=== PATIENT | female | born 1955 | race Caucasian/White ===

== ENCOUNTER 2020-07-23 09:00 | Outpatient (RCR) | payer OTHER, SELFPAY ==
--- NOTE | 2020-04-28 17:00 | PTOPEVAL ---
INITIAL PHYSICAL THERAPY EVALUATION and PLAN OF CARE Thank you for referring Della Sesay to [facility].? Della is scheduled to be seen for physical therapy? 2x/week for 6 weeks. Please review, sign, date and return this plan of care MELISSA. I agree with and certify that the following plan of care is medically necessary. Referring Physician Date Admitting Provider: Attending Provider: Michelle Esparza, PA Referring Provider: *PT Outpatient Evaluation Start: 04/28/20 08:35 Freq: Status: Active Protocol: Document 04/28/20 08:36 DAVONTE (Rec: 04/28/20 09:59 DAVONTE [email or web address]) Therapy Assessment Status Assessment Status Assessment Status Evaluation Outpatient Past Medical History Past Medical History Source of Past Medical History Patient Musculoskeletal History Hx Other Musculoskeletal Disorders Yes: chronic neck pain Other History Hx Other Surgeries Yes: dental work - implants L side upper & lower Evaluation Information Problem Diagnosis dizziness Onset worsening several months ago Subjective Information long history of neck pain - Query Text:As Reported By Patient/ when would massage deep on L Family upper, lateral neck near ear - would become dizzy. Receives regular chiropractic treatments since mid s - doesn't clear neck pain. Has been receiving massage - 1x/wk - even though person is gentle in this area - noticing dizziness is getting worse. Mom has had life long issues with dizziness - including nausea and vomitting and needing to crawl to bathroom. Dental implants upper and lower quadrant - did not notice any dizziness at that time. Most activities - limited due to neck pain - household, recreational, reading, etc. 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
--- NOTE | 2020-06-11 12:26 | PTOPEVAL ---
PHYSICAL THERAPY RE-EVALUATION and UPDATED PLAN OF CARE Thank you for referring Della Sesay to [facility].? Della has made progress towards goals set but is still in need of skilled PT. She is scheduled to be seen for physical therapy? 2x/week for 6 weeks. Please review, sign, date and return this plan of care MELISSA. I agree with and certify that the following plan of care is medically necessary. Referring Physician Date Admitting Provider: Attending Provider: Michelle Esparza, PA Referring Provider: *PT Outpatient Evaluation Start: 04/28/20 08:35 Freq: Status: Active Protocol: Document 06/11/20 11:10 DAVONTE (Rec: 06/11/20 12:25 DAVONTE [email or web address]) Therapy Assessment Status Assessment Status Assessment Status Re-evaluation Pain Assessment Timing of Pain Assessment Timing of Pain Assessment Pre-Treatment Pain Scale Pain Scale Used Numeric (1 - 10) Self Report Pain Assessment Posterior Spine, Cervical Reported Pain Level 3 Lowest Pain Intensity 1 Greatest Pain Intensity 5 Pain Score Pain Score 3: Self Report Interventions Used Interventions Used By Clinicians Exercise,Manual Therapy Techniques Cervical and Lumbar ROM Cervical ROM Cervical Flexion (0-60) 25 Query Text:Active in Degrees Cervical Extension (0-70) 45 Query Text:Active in Degrees Cervical Lateral Flexion Right (0-50) 25 Query Text:Active in Degrees Cervical Lateral Flexion Left (0-50) 25 Query Text:Active in Degrees Cervical Rotation Right (0-90) 40 Query Text:Active in Degrees Cervical Rotation Left (0-90) 40 Query Text:Active in Degrees Cervical and Lumbar Muscle Testing Cervical Muscle Testing Cervical Strength deep cervical flexor hold-20 sec PT Clinical Summary Clinical Summary Protocol: PTEVCODE PT Clinical Summary Neck Disability Index 70% Della is making gains with reduced cervical pain levels, increased ability to tolerate exercise, and some reduction of dizziness. She still has a constant low level of R sided cervical which want to decrease further, still will have mild dizziness with supine <-> sit motions but less on foam roller now, and still limited with functional abilities. She will continue to benefit from skilled PT to further improve the previous
--- NOTE | 2020-06-11 12:32 | PTOPEVAL ---
PHYSICAL THERAPY RE-EVALUATION and UPDATED PLAN OF CARE Thank you for referring Della Sesay to [facility] [place].? Della has made progress towards goals set but has not fully met them and will continue to benefit from skilled PT. She is scheduled to be seen for physical therapy? 2x/week for 6 weeks. Please review, sign, date and return this plan of care MELISSA. I agree with and certify that the following plan of care is medically necessary. Referring Physician Date Admitting Provider: Attending Provider: Michelle Esparza, PA Referring Provider: *PT Outpatient Evaluation Start: 04/28/20 08:35 Freq: Status: Active Protocol: Document 06/11/20 11:10 DAVONTE (Rec: 06/11/20 12:25 DAVONTE [email or web address]) Therapy Assessment Status Assessment Status Assessment Status Re-evaluation Evaluation Information Problem Subjective Information Della states that she overall Query Text:As Reported By Patient/ is doing better but had a Family rough day yesterday. Doing better with her HEP as well as the pool exercises. She reports that she hasn't done any lifting for years now. Pain Assessment Timing of Pain Assessment Timing of Pain Assessment Pre-Treatment Pain Scale Pain Scale Used Numeric (1 - 10) Self Report Pain Assessment Posterior Spine, Cervical Reported Pain Level 3 Lowest Pain Intensity 1 Greatest Pain Intensity 5 Pain Score Pain Score 3: Self Report Interventions Used Interventions Used By Clinicians Exercise,Manual Therapy Techniques Cervical and Lumbar ROM Cervical ROM Cervical Flexion (0-60) 25 Query Text:Active in Degrees Cervical Extension (0-70) 45 Query Text:Active in Degrees Cervical Lateral Flexion Right (0-50) 25 Query Text:Active in Degrees Cervical Lateral Flexion Left (0-50) 25 Query Text:Active in Degrees Cervical Rotation Right (0-90) 40 Query Text:Active in Degrees Cervical Rotation Left (0-90) 40 Query Text:Active in Degrees Cervical and Lumbar Muscle Testing Cervical Muscle Testing Cervical Strength deep cervical flexor hold - 20 sec PT Clinical Summary Clinical Summary Protocol: PTEVCODE PT Clinical Summary Neck Disability Index 70% Della is making gains with reduced cervical pain levels, increased ability to tolerate exercise, and some reduction of dizziness. She still has a constant low level of R sided cervical which want
--- NOTE | 2020-07-26 09:34 | PCPTNOTE ---
Patient called & cancelled scheduled appointment this date due to having to do something with her mother.
--- NOTE | 2020-07-26 09:35 | PCPTNOTE ---
This treatment is being continued on visit number [id number]. Please see documentation on both accounts to view progress. Completed interventions, outcomes, and problems have been marked as Inactive to facilitate the copying of the Care plan routine for recurring accounts.
== END 2020-07-27 23:59 | disposition home or self-care (01) ==
LOC: ANHHIPT 09:00
PROVIDERS: PCP Internal Medicine; Visit Provider Physician Assistant Medical
DX: R42 Dizziness and giddiness (principal)
CPT/HCPCS: 97110; 97140; 97162

== ENCOUNTER 2020-10-25 09:00 | Outpatient (RCR) | payer OTHER, SELFPAY ==
--- NOTE | 2020-07-26 09:38 | PCPTNOTE ---
The treatment documented on this account is a continuation of the treatment documented on visit number [id number]. Please see documentation on both accounts to view progress. The Plan of Care has been transitioned and updated within the new V#. I have addressed and agree with the discipline specific Problems, Interventions, and Goals for the current certification period. Completed interventions, outcomes, and problems have been marked as Inactive to facilitate the copying of the Care plan routine for recurring accounts.
--- NOTE | 2020-07-30 13:18 | PTOPEVAL ---
PHYSICAL THERAPY RE-EVALUATION and UPDATED PLAN OF CARE Thank you for referring Della Sesay to [facility].? Della is making progress with cervical dysfunction and her dizziness is 75-80% improved. She will continue to benefit from skilled PT. She is scheduled to be seen for physical therapy?2x/week for 6 weeks. Please review, sign, date and return this plan of care MELISSA. I agree with and certify that the following plan of care is medically necessary. Referring Physician Date Admitting Provider: Attending Provider: Luis Santoro, Referring Provider: *PT Outpatient Evaluation Start: 07/26/20 09:52 Freq: Status: Active Protocol: Document 07/30/20 09:12 DAVONTE (Rec: 07/30/20 10:11 DAVONTE [email or web address]) Therapy Assessment Status Assessment Status Assessment Status Re-evaluation Evaluation Information Problem Subjective Information Della still reports Query Text:As Reported By Patient/ difficulty with usual ADLs, Family IADLs - will result in neck pain. Lifting gallon of milk can be difficult for her. Dizziness is reduced 75-80%. Still will have the dizziness with lying down - not with getting up - time of day doesn 't make a difference. Still going to pool, getting upper cervical adjustments and acupuncture as well as performing HEP. She thinks that driving is getting a little easier for her. Pain Assessment Timing of Pain Assessment Timing of Pain Assessment Assessment Pain Scale Pain Scale Used Numeric (1 - 10) Self Report Pain Assessment Right Posterior Neck Reported Pain Level 2 Pain Description Dull Lowest Pain Intensity 1 Greatest Pain Intensity 3 Pain Score Pain Score 2: Self Report Interventions Used Interventions Used By Clinicians Manual Therapy Techniques Cervical and Lumbar ROM Cervical ROM Cervical Flexion (0-60) 20 Query Text:Active in Degrees Cervical Extension (0-70) 35 Query Text:Active in Degrees Cervical Lateral Flexion Right (0-50) 20 Query Text:Active in Degrees Cervical Lateral Flexion Left (0-50) 15 Query Text:Active in Degrees Cervical Rotation Right (0-90) 35 Query Text:Active in Degrees Cervical Rotation Left (0-90) 45 Query Text:Active in Degrees Cervical ROM Comments discomfort greatest with cervical flexion and L side
--- NOTE | 2020-09-13 11:38 | PTOPEVAL ---
PHYSICAL THERAPY RE-EVALUATION and UPDATED PLAN OF CARE Thank you for referring Della Sesay to [facility].? Della is making gains towards goals set - tolerating exercise better, increase with cervical AROM, decrease in pain levels, and dizziness almost gone. She is still having cervical segmental dysfunction as well as increase in tissue tension. She is scheduled to be seen for physical therapy? 1-2x/week for 6 weeks. Please review, sign, date and return this plan of care MELISSA. I agree with and certify that the following plan of care is medically necessary. Referring Physician Date Admitting Provider: Attending Provider: Luis Santoro, MD Referring Provider: Therapy Assessment Status Assessment Status Assessment Status Re-evaluation Evaluation Information Problem Diagnosis neck pain, dizziness Subjective Information Della states that dizziness Query Text:As Reported By Patient/ is mostly gone - but on Family occasions will still have it when lying down. Did well this weekend - was busy but no increase in neck discomfort. She is now able to spend more time on the computer (uses desktop unable to tolerate laptop) and perform some household activities. Doing well with HEP and pool exercises. Feels like she can is standing up straighter now . Pain Assessment Timing of Pain Assessment Timing of Pain Assessment Assessment Pain Scale Pain Scale Used Numeric (1 - 10) Self Report Pain Assessment Right Posterior Neck Reported Pain Level 1 Pain Description Aching,Dull,Sharp,Throbbing Lowest Pain Intensity 0 Greatest Pain Intensity 2 Pain Score Pain Score 1: Self Report Interventions Used Interventions Used By Clinicians Exercise,Manual Therapy Techniques Cervical and Lumbar ROM Cervical ROM Cervical Flexion (0-60) 20 Query Text:Active in Degrees Cervical Extension (0-70) 35 Query Text:Active in Degrees Cervical Lateral Flexion Right (0-50) 25 Query Text:Active in Degrees Cervical Lateral Flexion Left (0-50) 20 Query Text:Active in Degrees Cervical Rotation Right (0-90) 52 Query Text:Active in Degrees Cervical Rotation Left (0-90) 52 Query Text:Active in Degrees Cervical ROM Comments no c/o's discomfort with cervical motion this date Palpation Assessment Palpation Palpation increase in soft tissue tension still present - R
--- NOTE | 2020-10-25 10:24 | PTOPEVAL ---
PHYSICAL THERAPY RE-EVALUATION and UPDATED PLAN OF CARE Thank you for referring Della Sesay to [facility].? Della continues to make gains -- increase with cervical AROM, increased deep cervical flexor strength, and slow increase with functional ability levels. She will still benefit from skilled PT and is scheduled to be seen 2x/week for 6 weeks. Please review, sign, date and return this plan of care MELISSA. I agree with and certify that the following plan of care is medically necessary. Referring Physician Date Admitting Provider: Attending Provider: Luis Santoro, MD Referring Provider: Therapy Assessment Status Assessment Status Assessment Status Re-evaluation Evaluation Information Problem Diagnosis neck pain, dizziness Subjective Information Della reports that when she Query Text:As Reported By Patient/ is on the computer (desktop) Family will feel discomfort beginning at base of neck - R side - upper trap region. When questioned about monitor height - it is a little too high. Did discuss lowering monitor some. Will still have increase discomfort in neck after going to the pool. Can use cervical retraction to decrease the discomfort. Has begun to increase exercise reps - some days feels better than others. Pain Assessment Self Report Pain Assessment Right Posterior Neck Reported Pain Level 2 Pain Description Aching,Dull Other Pain Description feels wound up Lowest Pain Intensity 0 Greatest Pain Intensity 2 Cervical and Lumbar ROM Cervical ROM Cervical Flexion (0-60) 30 Query Text:Active in Degrees Cervical Extension (0-70) 50 Query Text:Active in Degrees Cervical Lateral Flexion Right (0-50) 35 Query Text:Active in Degrees Cervical Lateral Flexion Left (0-50) 30 Query Text:Active in Degrees Cervical Rotation Right (0-90) 54 Query Text:Active in Degrees Cervical Rotation Left (0-90) 58 Query Text:Active in Degrees Cervical ROM Comments mild discomfort present at end range of rotation Cervical and Lumbar Muscle Testing Cervical Muscle Testing Deep Cervical Flexion hold 32.71 seconds Palpation Assessment Palpation Palpation P-A mobility testing - marked decreased movement C6,5 - moderate decreased motion at C7 - mild decrease at T1,2 C 4,
--- NOTE | 2020-10-27 12:22 | PCPTNOTE ---
This treatment is being continued on visit number [id number]. Please see documentation on both accounts to view progress. Completed interventions, outcomes, and problems have been marked as Inactive to facilitate the copying of the Care plan routine for recurring accounts.
== END 2020-10-27 11:17 | disposition home or self-care (01) ==
LOC: ANHHIPT 09:00
PROVIDERS: PCP Internal Medicine; Visit Provider Internal Medicine
DX: R42 Dizziness and giddiness (principal)
CPT/HCPCS: 97110; 97140

== ENCOUNTER 2020-12-28 09:00 | Outpatient (RCR) | payer OTHER, SELFPAY ==
--- NOTE | 2020-10-27 12:23 | PCPTNOTE ---
The treatment documented on this account is a continuation of the treatment documented on visit number [id number]. Please see documentation on both accounts to view progress. The Plan of Care has been transitioned and updated within the new V#. I have addressed and agree with the discipline specific Problems, Interventions, and Goals for the current certification period. Completed interventions, outcomes, and problems have been marked as Inactive to facilitate the copying of the Care plan routine for recurring accounts.
--- NOTE | 2020-12-06 12:15 | PTOPEVAL ---
PHYSICAL THERAPY RE-EVALUATION and UPDATED PLAN OF CARE Thank you for referring Dlela Sesay to [facility].? Della continues to make slow, steady gains towards cervical and scapular strength and upgrading functional activities. Della is scheduled to continue with physical therapy? 2x/week for 8 weeks. Please review, sign, date and return this plan of care MELISSA. I agree with and certify that the following plan of care is medically necessary. Referring Physician Date Admitting Provider: Attending Provider: Luis Santoro, Referring Provider: Therapy Assessment Status Assessment Status Assessment Status Re-evaluation Evaluation Information Problem Diagnosis neck pain, dizziness Subjective Information Della reports having no Query Text:As Reported By Patient/ cervical around 10% of the day Family most days. Increase in discomfort since last Sunday - unable to have pain settle down until Sunday. She can usually reduce her cervical discomfort with lying down and cervical pillow. She watches her posture with household activities - but still avoid any type of lifting. Pain Assessment Self Report Pain Assessment Posterior Spine, Cervical Reported Pain Level 1 Pain Description Tightness Lowest Pain Intensity 0 Greatest Pain Intensity 2 Cervical and Lumbar ROM Cervical ROM Cervical Flexion (0-60) 25 Query Text:Active in Degrees Cervical Extension (0-70) 45 Query Text:Active in Degrees Cervical Lateral Flexion Right (0-50) 30 Query Text:Active in Degrees Cervical Lateral Flexion Left (0-50) 25 Query Text:Active in Degrees Cervical Rotation Right (0-90) 52 Query Text:Active in Degrees Cervical Rotation Left (0-90) 55 Query Text:Active in Degrees Cervical ROM Comments increased tightness present with motion today Cervical and Lumbar Muscle Testing Cervical Muscle Testing Deep Cervical Flexion hold 56.63 seconds Palpation Assessment Palpation Palpation Restricted P-A mobility C7,6,5 fair/good mobility T1,2, C4, 3 Lateral motion - restriction present C6,5 -but reduced symmetrically Soft tissue - R lateral cervical soft tissue - upper trapezius, lateral scalene, suboccipital Decrease with L sided tissue tension present
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
== END 2020-12-31 07:53 | disposition home or self-care (01) ==
LOC: ANHPT 09:00
PROVIDERS: PCP Internal Medicine; Visit Provider Internal Medicine
DX: R42 Dizziness and giddiness (principal)
CPT/HCPCS: 97110; 97140

== ENCOUNTER 2021-03-28 10:00 | Outpatient (RCR) | payer OTHER, SELFPAY ==
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
--- NOTE | 2021-02-11 09:54 | PCPTNOTE ---
Mix up with appointment times - Della could not return for later appointment time scheduled this date.
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
--- NOTE | 2021-03-07 09:18 | PCPTNOTE ---
Patient called & cancelled scheduled appointment this date due to family issues.
--- NOTE | 2021-03-30 08:12 | PCPTNOTE ---
This treatment is being continued on visit number [id number]. Please see documentation on both accounts to view progress. Completed interventions, outcomes, and problems have been marked as Inactive to facilitate the copying of the Care plan routine for recurring accounts.
== END 2021-03-29 10:33 | disposition home or self-care (01) ==
LOC: ANHHIPT 10:00
PROVIDERS: PCP Internal Medicine; Visit Provider Internal Medicine
DX: M54.2 Cervicalgia (principal); M54.5 Low back pain; V89.2XXA Person injured in unspecified motor-vehicle accident, traffic, initial encounter
CPT/HCPCS: 97110; 97140; 97162

== ENCOUNTER 2021-06-16 10:00 | Outpatient (RCR) | payer OTHER, SELFPAY ==
--- NOTE | 2021-03-30 08:13 | PCPTNOTE ---
The treatment documented on this account is a continuation of the treatment documented on visit number [id number]. Please see documentation on both accounts to view progress. The Plan of Care has been transitioned and updated within the new V#. I have addressed and agree with the discipline specific Problems, Interventions, and Goals for the current certification period. Completed interventions, outcomes, and problems have been marked as Inactive to facilitate the copying of the Care plan routine for recurring accounts.
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
== END 2021-06-17 10:49 | disposition home or self-care (01) ==
LOC: ANHPT 10:00
PROVIDERS: PCP Internal Medicine; Visit Provider Internal Medicine
DX: M54.2 Cervicalgia (principal); M54.5 Low back pain; V89.2XXA Person injured in unspecified motor-vehicle accident, traffic, initial encounter
CPT/HCPCS: 97110; 97140

== ENCOUNTER → 2021-09-17 08:56 | Outpatient (CLI) | payer OTHER, SELFPAY ==
--- NOTE | ~2021-09-17 | MR_ITS ---
EXAMINATION: MR cervical spine wo con DATE: 09/17/2021 09:38 INDICATION: Cervical radiculopathy. Chronic neck pain. TECHNIQUE: Magnetic resonance imaging (MRI) of the cervical spine was performed without intravenous c ontrast. Sequences included sagittal T2-weighted FSE, sagittal STIR FSE, sagittal T1-weighted FSE, ax ial MERGE, and axial T2-weighted FSE. COMPARISON: None FINDINGS: There is 2 mm retrolisthesis of C4 on C5 and C5 and C6. Vertebral body heights are normal. There is mildly decreased disc height at C4-C5 and severely decreased disc height at C5-C6 and C6-C7. The spinal cord signal intensity is normal. The following disc levels are specifically discussed: C2-C3: The disc does not extend beyond the endplate margin. There is no uncovertebral joint osteoarth ritis. There is mild right and moderate left facet joint osteoarthritis. There is mild left neural fo raminal stenosis. There is no central canal stenosis. C3-C4: The disc does not extend beyond the endplate margin. There is no uncovertebral joint osteoarth ritis. There is severe bilateral facet joint osteoarthritis. There is mild left neural foraminal sten osis. There is no central canal stenosis. C4-C5: The disc is bulging. There is moderate bilateral uncovertebral joint osteoarthritis. There is mild bilateral facet joint osteoarthritis. There is mild bilateral neural foraminal stenosis. There i s mild central canal stenosis. C5-C6: The disc is bulging. There is severe bilateral uncovertebral joint osteoarthritis. There is mi ld bilateral facet joint osteoarthritis. There is mild lateral neural foraminal stenosis. There is mi ld central canal stenosis. C6-C7: The disc is bulging. There is severe bilateral uncovertebral joint osteoarthritis. There is se indira right and mild left facet joint osteoarthritis. There is mild bilateral neural foraminal stenosi s. There is mild central canal stenosis. C7-T1: The disc does not extend beyond the endplate margin. There is no uncovertebral joint osteoarth ritis. There is severe bilateral facet joint osteoarthritis. There is mild bilateral neural foraminal stenosis. There is no central canal stenosis. IMPRESSION: 1. Severe cervical spondylosis. Reviewed, dictated and finalized at location [facility]
== END ==
DX: M54.12 Radiculopathy, cervical region (principal); M43.02 Spondylolysis, cervical region; M50.30 Other cervical disc degeneration, unspecified cervical region
CPT/HCPCS: 72141